=== PATIENT | male | born 1955 | race Caucasian/White ===

== ENCOUNTER → 2019-05-07 | Outpatient (CLI) | payer OTHER ==
[~2019-05-07] MED LIST: ASPIRIN325 PO; ATENOLOL 25 MG25 M1 PO; ATENOLOL 50MG T50 M1 PO; CHLORTHALIDONE25 MG PO; CRESTOR20 MG PO; FISH OIL 1,2001 EAC3 PO; FOLIC ACID PO; GLUCOPHAGE1000 MG PO; GLUCOPHAGE500 MG PO; HYDROCODON-ACE1 EAC7 PO; HYDROCODON-ACE1 EACH PO; LISINOPRIL40 MG PO; MECLIZINE 25 MG25 M1 PO; MULTIVITAMINS PO; NIASPAN 500 MG500 M1 PO; PREVACID15 MG PO; RELAFEN750 MG PO; TEKTURNA HCT 31 EACH; TEKTURNA300 MG PO; TRAMADOL 50 MG50 MG PO; TRICOR145 MG PO; TRILIPIX135 MG PO
== END ==
LOC: SJCVC 09:21
DX: I25.10 Atherosclerotic heart disease of native coronary artery without angina pectoris (principal); I10 Essential (primary) hypertension; G47.33 Obstructive sleep apnea (adult) (pediatric); E11.9 Type 2 diabetes mellitus without complications; E78.00 Pure hypercholesterolemia, unspecified; Z90.49 Acquired absence of other specified parts of digestive tract; Z79.899 Other long term (current) drug therapy

== ENCOUNTER → 2019-09-07 | Outpatient (CLI) | payer OTHER ==
[~2019-09-07] VITALS: Ht 177.8 cm; Wt 59.9 kg
[~2019-09-07] MED LIST changes: +AVAPRO300 MG PO; +HYDROCHLOROTHIA25 M2 PO; +IPRATROPIUM BRO15 ML NASAL; +JARDIANCE25 MG PO; +MELOXICAM15 MG PO; +NORVASC 2.5 MG2.5 M1 PO; +OMEPRAZOLE 20 M20 M1 PO; +SEROQUEL 25 MG25 MG PO; +TOPROL XL50 MG PO; +VALIUM5 MG PO; +VICTOZA0.6 MG/0.1 SUBQ; +ZOLOFT100 MG PO
[2019-09-07 08:28] VITALS: BP 124/68
--- NOTE | 2019-09-07 08:39 | NUR ---
Pain Clinic Assessment: 1. History of Osteoarthritis: Right Upper Extremity Right Lower Extremity Left Lower Extremity Left Upper Extremity History of Rheumatoid Arthritis: Not Applicable 2. Height: 5 ft. 10 in. 177.8 cm. Weight: 132.0 lb. oz. 59.875 kg. Patient's BMI: 18.9 3. Vital Signs: BP: 124/68 Pulse: 65 Resp: 16 Temp: 02 Sat: 98 ECG Mon: 4. Pain Intensity: 8 5. Fall Risk: Dizziness: Y Needs help standing or walking: Y Fallen in the last 3 months: Y Fall risk comments: 6. Patient on Blood Thinner: None 7. History of Hypertension: Y 8. Opioid Therapy greater than 6 weeks: Opiate Contract Signed: 9. Risk Assessment Tool Provided: 10. Functional Assessment Tool: 11. Recreational Drug Use: Never Drug Type: Tobacco Use: Never Smoker Tobacco Type: Amount or Packs/day: How Many Years: Alcohol Use: Yes Frequency: Weekly Quant: LIQUOR
--- NOTE | 2019-09-07 14:10 | HPC ---
[facility] [address] [place] [address] PAIN MANAGEMENT CONSULTATION Name: CHAGO VELEZ Room #: REG [facility].#: [id number] Admission: 09/07/19 Attend Phys: Stepan Macario DO Discharge: Date of : 53 Report #: [id number] THIS REPORT FOR: cc: FAM - No family physician/PCP FAM - No family physician/PCP Stepan Macario DO ~ DATE OF SERVICE: 09/07/2019 CHIEF COMPLAINT: Left buttock and groin pain. HISTORY OF PRESENT ILLNESS: As you know, the patient is a 64-year-old male, who reports acute onset of left buttock and anterior groin pain that occurred after a fall off a ladder sustained 08/18/2019. The patient apparently has had multiple falls off ladders, but this most recent fall caused the patient's symptoms. He was given the presumptive diagnosis of myofascial pain and trialled on conservative treatment. Symptoms did not improve and the patient ultimately underwent CT examination of the back, which showed stable findings with no lateralizing feature to the left. Due to lack of improvement, the patient was referred to our clinic to discuss treatment options. The patient reports today pain is continuous and steady. He describes the pain as shooting, aching, throbbing, sharp and stabbing. He place his current pain score at 8/10, daily average at anywhere from 9-10+ /10, worst pain has been 10+/10. The patient states that his pain is exacerbated with standing and walking as well as sitting on his left buttock area, improves with offloading weight from the left buttock area and long distance ambulation. The patient reports that his fall from the ladder, landed on the left side causing significant bruising in the buttock area and myofascial symptoms in the paraspinal musculature of the thoracic and lumbar area. The patient has been referred to our service for left buttock and anterior thigh pain. PAST MEDICAL HISTORY: 1. Diabetes mellitus type 2. 2. Hypertension. 3. Coronary artery disease. 4. Gastroesophageal reflux disease. 5. Dyslipidemia. 6. Chronic kidney disease. 7. Emotional problems. 8. Degenerative joint disease. 9. Osteoarthritis. 10. Peptic ulcer disease. PAST SURGICAL HISTORY: 1. Angioplasty with percutaneous stenting. [facility] [address] [place] [address] PAIN MANAGEMENT CONSULTATION Name: CHAGO VELEZ Room #: REG [facility].#: [id number] Admission: 09/07/19 Attend Phys: Stepan Macario DO Discharge: Date of : 53 Report #: [id number] 2. Tonsillectomy and adenoidectomy. 3. Appendectomy. 4. Vasectomy. 5. Open reduction and internal fixation of a wrist. 6. Sinus surgery. 7. Bilateral carpal tunnel release. 8. Right knee surgery. 9. Bilateral plantar fasciitis release. 10. Anterior diskectomy. 11. Left shoulder surgery. 12. Right knee arthroscopy. 13. Right knee total arthroplasty. 14. SLAP procedure on the right shoulder. 15. Bilateral upper and lower blepharoplasties. SOCIAL HISTORY: The patient reports himself a nonsmoker. Denies IV or illicit drug use. Admits to 2 alcohol beverages per week. He is on disability and has been so since 08/2011. He is receiving social security disability coverage. He is not in levigation in regard to pain, accompanied by his , present in room today. REVIEW OF SYSTEMS: Positive for weight gain, fatigue, weakness, wearing corrective eyewear, blurred and double vision, hearing loss with tinnitus, shortness of breath walking or lying flat, heart trouble, chest pain, changes in bowel movements, constipation interspersed with diarrhea, rectal bleeding, lightheadedness and dizziness, head injury, memory loss with confusion, status post fall, memory issues, nervousness, depression, insomnia, diabetes mellitus type 2, excessive thirst, urination, heat and cold intolerance, slow to heal after cuts, left buttock and anterior groin pain status post fall. All other review of systems negative per 12-point review of systems other than those listed in history of present illness. Pain impact score 56/70 indicating severe interference of daily activities secondary to pain. IMAGING: CT of the lumbar spine dated 08/26/2019 shows no findings of acute bony injury. There is a questionable loss of T11 height, but is not well demonstrated either on the MRI prior or this imaging study. There are diffuse degenerative changes noted, which are age related. Minimal central disk bulge at C2-C3 without impingement. This does cause minimal left and minimal right foraminal tapering, moderate posterior facet degenerative changes L4-L5, severe posterior degenerative changes at L5-S1 without impingement. PQRS: The patient has arthritic changes known of the lumbar spine, bilateral knees. No rheumatoid arthritis. He has known arthritic changes of the bilateral shoulders. He is placing current pain intensity 8/10. He is a fall [facility] [address] [place] [address] PAIN MANAGEMENT CONSULTATION Name: CHAGO VELEZ [id number] Admission: 09/07/19 Attend Phys: Stepan Macario DO Discharge: Date of : 53 Report #: [id number] risk and has had multiple falls in the last 3 months. He does not use any type of ambulatory device despite recommendations to do so. He is not on any blood thinners, but is treated for hypertension. He is not on any opioids and has a moderate opioid addiction potential. His pain impact score 56/70, severe interference of daily activities secondary to pain. PHYSICAL EXAMINATION: VITAL SIGNS: Blood pressure 124/68, pulse 65, respiratory rate 16 and unlabored. The patient is 98% on room air. Height 5 feet 10 inches tall, weight 132 pounds, BMI calculated 18.9. GENERAL: Well-developed, well-nourished, well-hydrated 64-year-old male. He appears his stated age. He is placing current pain score at 8/10. HEENT: Normocephalic, atraumatic. Pupils equal, round, reactive to light. NEUROLOGIC: Speech is fluent. The patient deemed a fair historian. LUNGS: Clear. No wheeze, rhonchi or rales. CARDIOVASCULAR: Regular. No appreciable gallop, no rub. ABDOMEN: Soft. Normoactive bowel sounds. EXTREMITIES: Show no clubbing, no cyanosis, no edema. MUSCULOSKELETAL: The patient has palpatory tenderness over the SI joint on the left, negative right. Deep palpation of the area causes intensification of pain with radiation towards the anterior groin. Seated straight leg raising negative. Supine straight leg raising positive only for SI joint dysfunction, no radicular component. Muscle bulk and tone equal and symmetrical in lower extremities bilaterally. Ankle clonus negative. Babinski is negative. Gait is extremely antalgic favoring left lower extremity over right. This is noted with initial weightbearing and initial 3 to 5 steps, then gait tends to smooth over the next 30 to 40 steps. The patient does have a leg length discrepancy with the left leg approximately 1 inch longer than the right, consistent with SI joint dysfunction. ASSESSMENT: 1. Left sacroiliac joint dysfunction. 2. Age related facet arthropathy of the lumbar spine. 3. Neural foraminal stenosis of lumbar spine. 4. Intractable pain status post fall. PLAN: 1. Based on today's physical exam and the history the patient has provided, the description the patient uses in regard to pain as well as location of symptoms and the source of the pain, which was the fall from the ladder on to the left buttock and left arm, likely source of the patient's symptoms is the sacroiliac joint on the left. We discussed with the patient treatment options for SI joint dysfunction today, the following was discussed with the patient: We discussed physical therapy, stretching exercises and manipulation of the SI joint, which is the typical goal standard treatment for SI joint dysfunction. We discussed medication management with suggestions of treatment including a consistent [address] [address] PAIN MANAGEMENT CONSULTATION Name: CHAGO VELEZ Room #: REG [facility]#: [id number] Admission: 09/07/19 Attend Phys: Stepan Macario DO Discharge: Date of : 53 Report #: [id number] nonsteroidal anti-inflammatory if the patient can take these type of medications with the diagnosis that he has of gastroesophageal reflux disease and peptic ulcer disease. We discussed the possible addition of neuropathic pain medications in the form of nortriptyline, amitriptyline, Cymbalta or Lyrica as a possible treatment course, but given his given his underlying history of brain injury and subsequent memory loss and emotional issues this would be initiated only through the physicians that are writing for his other medications. We discussed intra-articular SI joint injections and surgical options. After reviewing the risks and benefits of all the proposed treatment options, the patient chose to begin with a sacroiliac joint injection. 2. Due to third constitution party payer restrictions, authorization must be obtained before the patient can undergo a left SI joint injection. We will begin this authorization process immediately. We should have the answer to this in the next 24-48 hours and will have the patient return to undergo SI joint injection under fluoroscopic guidance to address left sacroiliac joint pain. 2. No medications provided at today's visit. Recommend the patient will continue current medical therapy. 3. We wish to thank Dr. Adrianne Wang for the opportunity to see the patient in consultation. We will keep you apprised of his response to treatment as we address sacroiliac joint pain on the left, status post fall from the ladder. Again, we wish to thank you for the opportunity to see this patient in consultation. <ELECTRONICALLY SIGNED> By: Stepan Macario DO 09/07/19 1410 1221 [id number] Stepan Macario DO /nt
== END ==
LOC: PAIN 06:49
DX: M17.11 Unilateral primary osteoarthritis, right knee (principal); I25.10 Atherosclerotic heart disease of native coronary artery without angina pectoris; K21.9 Gastro-esophageal reflux disease without esophagitis; I12.9 Hypertensive chronic kidney disease with stage 1 through stage 4 chronic kidney disease, or unspecified chronic kidney disease; E11.22 Type 2 diabetes mellitus with diabetic chronic kidney disease; N18.9 Chronic kidney disease, unspecified

== ENCOUNTER → 2019-09-08 | Outpatient (CLI) | payer OTHER ==
[~2019-09-08] VITALS: Ht 177.8 cm; Wt 105.6 kg
[2019-09-08 14:04] VITALS: BP 138/77
--- NOTE | 2019-09-08 14:32 | NUR ---
Pain Clinic Assessment: 1. History of Osteoarthritis: Right Upper Extremity Right Lower Extremity Left Lower Extremity Left Upper Extremity History of Rheumatoid Arthritis: Not Applicable 2. Height: 5 ft. 10 in. 177.8 cm. Weight: 232.8 lb. oz. 105.598 kg. Patient's BMI: 33.4 3. Vital Signs: BP: 138/77 Pulse: 78 Resp: 16 Temp: 02 Sat: 98 ECG Mon: 4. Pain Intensity: 9 5. Fall Risk: Dizziness: N Needs help standing or walking: N Fallen in the last 3 months: N Fall risk comments: 6. Patient on Blood Thinner: None 7. History of Hypertension: Y 8. Opioid Therapy greater than 6 weeks: Y Opiate Contract Signed: 9. Risk Assessment Tool Provided: 10. Functional Assessment Tool: 11. Recreational Drug Use: Never Drug Type: Tobacco Use: Never Smoker Tobacco Type: Amount or Packs/day: How Many Years: Alcohol Use: Yes Frequency: Quant:
--- NOTE | 2019-09-14 08:39 | HPC ---
[facility] [place] [address] [address] [place] [address] PAIN MANAGEMENT CONSULTATION Name: CHAGO VELEZ [id number] Admission: 09/08/19 Attend Phys: Stepan Macario DO Discharge: Date of : 53 Report #: [id number] THIS REPORT FOR: cc: PRAVEEN - No family physician/PCP FAM - No family physician/PCP Stepan Macario DO ~ DATE OF SERVICE: 09/08/2019 REFERRING PHYSICIAN: CECILIO Estrada CHIEF COMPLAINT: Left buttock pain secondary to left SI joint dysfunction. HISTORY OF PRESENT ILLNESS: As you know, the patient is a 64-year-old male who reported acute onset of left buttock and anterior groin pain that occurred after a fall off a ladder sustained 08/18/2019. The patient was seen in consultation per the request of physician bindery assistantMich. The patient was seen yesterday and diagnosed with left SI joint dysfunction. He was established today's appointment to undergo a left SI joint injection under fluoroscopic guidance. He returns today in followup visit stating a pain level of about 9/10. He denies any changes in his medical history in the past 24 hours. ALLERGIES: INFLUENZA VIRUS VACCINES, MORPHINE, PNEUMOCOCCAL VACCINES. CURRENT MEDICATIONS: Meloxicam, diazepam, ipratropium bromide, Victoza, quetiapine, sertraline, rosuvastatin, aspirin, metformin, irbesartan, omeprazole, amlodipine, Jardiance, metoprolol and hydrochlorothiazide. SOCIAL HISTORY: The patient reports himself a nonsmoker. Denies IV or illicit drug use. Admits to 2 alcohol beverages per week. He is on disability and has been so since 08/2011, accompanied by his present in the room today. IMAGING: No new imaging available. PQRS: The patient has arthritic changes of the lumbar spine, bilateral knees. No rheumatoid arthritis. He is placing pain intensity today at around 9/10, is not a fall risk, has not had a fall in last 3 months. He is not on blood thinners. He is treated for hypertension. He is on chronic opioids and has a low to moderate addiction potential. Pain impact score today 56/70, severe interference of daily activities secondary to pain. PHYSICAL EXAMINATION: VITAL SIGNS: Blood pressure 138/77, pulse 78, respiratory rate 16 and unlabored. The patient is 98% on room air. Height 5 feet 10 inches tall, weight 232.8 pounds, BMI calculated 33.4. GENERAL: Well-developed, well-nourished, well-hydrated 64-year-[place] [address] PAIN MANAGEMENT CONSULTATION Name: CHAGO VELEZ [facility] [id number] Admission: 09/08/19 Attend Phys: Stepan Macario DO Discharge: Date of : 53 Report #: [id number] appears his stated age, pain is rated today 9/10. HEENT: Normocephalic, atraumatic. Pupils are round and reactive. Speech is fluent. EXTREMITIES: Show no clubbing, no cyanosis, no edema. MUSCULOSKELETAL: The patient continues to have palpatory tenderness over the left SI joint, negative right. There is negative seated straight leg raising bilaterally. Supine straight leg raising is positive for SI joint dysfunction on the left. No radicular symptoms again today. Leg length discrepancy remains approximately 1 inch longer on the left when compared to the right. ASSESSMENT: 1. Left sacroiliac joint dysfunction. 2. Age related facet degenerative changes of the lumbar spine. 3. Age related neural foraminal stenosis of lumbar spine, mild in nature. 4. Intractable pain status post fall. PLAN: 1. The patient returns today in followup visit to undergo left SI joint injection under fluoroscopic guidance to address his 9/10 pain. The patient has been advised the risks and benefits of this procedure. These risks include but are not necessarily limited to bleeding, bruising, infection, worsening pain, no relief of pain, also risk of temporary or permanent muscle weakness, temporary or permanent nerve damage, possible paralysis and . The patient states understood and wished to proceed. 2. The patient will be sent for physical therapy 3 times a week for over 6 weeks period of time. We have also recommended the patient look into [facility] in his local area to undergo manipulation of the SI joint in hopes of releveling the pelvis after this fall and subsequent leg length discrepancy. Without manipulation of the SI joint, I believe injections will have only transient improvement in symptoms. This in conjunction with physical therapy would provide the most effective treatment option for the patient. He will contact the [facility] at his earliest convenience and begin physical therapy once he has completed the manipulation of the SI joint. 3. We will see the patient back in followup visit on an as needed basis for possible next in the series of SI joint injections. PROCEDURE NOTE DESCRIPTION OF PROCEDURE: Left sacroiliac joint injection under fluoroscopic guidance. This is the first procedure of the first series that the patient is undergoing. After obtaining written consent, the patient was taken back to the fluoroscopy suite and placed in a prone position with a pillow under the pelvis to decrease the lumbar lordosis. The skin of the gluteal-sacral area overlying the left [address] [address] PAIN MANAGEMENT CONSULTATION Name: CHAGO VELEZ [id number] Admission: 09/08/19 Attend Phys: Stepan Macario DO Discharge: Date of : 53 Report #: [id number] sacroiliac joint was prepped and draped in an aseptic fashion. A medial to lateral oblique projection allowed separation of the anterior and posterior branches of the joint space. The skin and subcutaneous tissue overlying the target site of injection was anesthetized using 3 mL of 1% lidocaine. A 22-gauge 3-1/2 inch needle with a bent tip was directed into the inferior aspect of the sacroiliac joint using a posterior approach. A giving way at the needle hub was noted once the dorsal sacroiliac and interosseous ligaments were engaged. After negative aspiration for heme, a total of 0.4 mL of Omnipaque was injected, outlining the coin-shaped inferior recess of the joint. Provocation responses consisting of intense buttock pain were negative. After negative aspiration for heme, 3 mL of a solution containing 1 mL 40 mg/mL 40 mg total triamcinolone, 2 mL of bupivacaine 0.5% was slowly injected. The needle was then retracted approximately jail and the needle track was flushed with 1 mL of 1% lidocaine. Needle was then removed. A sterile bandage was placed over the injection site. There were no new sensory deficits present in the lower extremities. The heart rate, pulse oximetry and blood pressure were continuously monitored after the procedure. There were no apparent complications. The patient tolerated the procedure well and was carefully escorted to the recovery room in stable condition. The VAS was 9/10 before the procedure and 2/10 ten minutes after the procedure. After meeting discharge criteria, the patient was discharged home. <ELECTRONICALLY SIGNED> By: Stepan Macario DO 09/14/19 0839 [id number] [id number] Stepan Macario DO /nt
== END | disposition home or self-care (01) ==
LOC: PAIN 07:05
PROVIDERS: ATTEND Anesthesiology Pain Medicine
DX: M53.3 Sacrococcygeal disorders, not elsewhere classified (principal); M48.061 Spinal stenosis, lumbar region without neurogenic claudication; M47.26 Other spondylosis with radiculopathy, lumbar region; I10 Essential (primary) hypertension; M19.90 Unspecified osteoarthritis, unspecified site; Z98.890 Other specified postprocedural states; Z79.899 Other long term (current) drug therapy; Z88.8 Allergy status to other drugs, medicaments and biological substances
CPT/HCPCS: G0260

== ENCOUNTER → 2019-11-01 | Outpatient (CLI) | payer OTHER | LOC: SJCVCIMAG 08:02 | PROVIDERS: ATTEND Internal Medicine | DX: I44.0 Atrioventricular block, first degree (principal); I25.10 Atherosclerotic heart disease of native coronary artery without angina pectoris; Z79.82 Long term (current) use of aspirin; Z79.899 Other long term (current) drug therapy; Z88.6 Allergy status to analgesic agent; Z98.61 Coronary angioplasty status ==

== ENCOUNTER → 2019-11-05 | Outpatient (CLI) | payer OTHER | LOC: SJCVC 11:41 | PROVIDERS: ATTEND Internal Medicine | DX: I44.0 Atrioventricular block, first degree (principal); I25.10 Atherosclerotic heart disease of native coronary artery without angina pectoris; I10 Essential (primary) hypertension; G47.33 Obstructive sleep apnea (adult) (pediatric); E78.5 Hyperlipidemia, unspecified; E11.9 Type 2 diabetes mellitus without complications ==

== ENCOUNTER → 2020-05-12 | Outpatient (CLI) | payer OTHER | LOC: SJCVC 10:01 | PROVIDERS: ATTEND Internal Medicine | DX: R94.31 Abnormal electrocardiogram [ECG] [EKG] (principal); I25.10 Atherosclerotic heart disease of native coronary artery without angina pectoris; I10 Essential (primary) hypertension; G47.33 Obstructive sleep apnea (adult) (pediatric); E78.5 Hyperlipidemia, unspecified; E11.9 Type 2 diabetes mellitus without complications; E78.00 Pure hypercholesterolemia, unspecified; Z87.891 Personal history of nicotine dependence; Z72.89 Other problems related to lifestyle; Z79.84 Long term (current) use of oral hypoglycemic drugs; Z79.82 Long term (current) use of aspirin; Z79.899 Other long term (current) drug therapy; Z88.5 Allergy status to narcotic agent; Z88.8 Allergy status to other drugs, medicaments and biological substances ==

== ENCOUNTER → 2020-12-21 | Outpatient (CLI) | payer OTHER | LOC: CAT 08:14 | PROVIDERS: ATTEND Ophthalmology | DX: H04.203 Unspecified epiphora, bilateral (principal); J32.0 Chronic maxillary sinusitis; J34.89 Other specified disorders of nose and nasal sinuses ==

== ENCOUNTER → 2021-01-08 | Outpatient (CLI) | payer OTHER | LOC: SJCVC 09:30 | PROVIDERS: ATTEND Internal Medicine | DX: E11.9 Type 2 diabetes mellitus without complications (principal); G47.30 Sleep apnea, unspecified; I25.10 Atherosclerotic heart disease of native coronary artery without angina pectoris; I10 Essential (primary) hypertension; E78.5 Hyperlipidemia, unspecified; E78.00 Pure hypercholesterolemia, unspecified ==

== ENCOUNTER → 2021-05-14 | Outpatient (CLI) | payer OTHER | LOC: SJCVC 15:50 | PROVIDERS: ATTEND Internal Medicine | DX: I44.0 Atrioventricular block, first degree (principal); I10 Essential (primary) hypertension; I25.10 Atherosclerotic heart disease of native coronary artery without angina pectoris; E11.9 Type 2 diabetes mellitus without complications; G47.33 Obstructive sleep apnea (adult) (pediatric); E78.5 Hyperlipidemia, unspecified; Z79.82 Long term (current) use of aspirin; Z79.899 Other long term (current) drug therapy; Z87.891 Personal history of nicotine dependence; Z90.49 Acquired absence of other specified parts of digestive tract; Z98.890 Other specified postprocedural states ==